=== PATIENT | female | born 1970 | race Caucasian/White ===

== ENCOUNTER → 2025-04-30 08:15 | Outpatient (REF) | payer BC, SELFPAY | LOC: HWWDC 08:15 | PROVIDERS: ATTENDING PHYSICIAN Internal Medicine | DX: Z12.31 Encounter for screening mammogram for malignant neoplasm of breast (principal) | CPT/HCPCS: 77063; 77067 ==

== ENCOUNTER 2025-07-05 08:31 | Emergency (ER) | payer BC, SELFPAY ==
[2025-07-05 08:35] VITALS: BP 124/78
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
[2025-07-05] MEDS: TYLENOL 650 MG PO (09:52)
== END 2025-07-05 11:02 | disposition home or self-care (01) ==
LOC: EMR 08:31
PROVIDERS: EMERGENCY PHYSICIAN Emergency Medicine; FAMILY PHYSICIAN Internal Medicine
DX: R07.89 Other chest pain (principal); R51.9 Headache, unspecified
CPT/HCPCS: 99284; 70450; 71101